=== PATIENT | male | born 1965 | race Two or more races ===

== ENCOUNTER 2017-11-28 18:26 | Emergency (ER) | payer MEDICAID ==
[~2017-11-28] VITALS: Ht 167.6 cm; Wt 81.6 kg
[2017-11-28] MEDS ORDERED: CODE10LI PO (19:29)
[2017-11-28 19:35] VITALS: BP 146/101
== END 2017-11-28 19:37 | disposition home or self-care (01) ==
LOC: ER 18:27
DX: J22 Unspecified acute lower respiratory infection (principal)
CPT/HCPCS: 99281; 99283